=== PATIENT | male | born 1960 | race Caucasian/White ===

== ENCOUNTER 2022-12-18 19:05 | Emergency (ER) | payer MEDICAID, OTHER ==
[~2022-12-18] VITALS: Ht 188 cm; Wt 82.0 kg
[2022-12-18] MEDS ORDERED: IBUPROFEN 600MG TABLET PO STA (22:57)
[2022-12-19] MEDS ORDERED: CIPR5DRO EACHEYE (05:46)
[2022-12-19 08:03] VITALS: BP 129/52
== END 2022-12-19 10:00 | disposition home or self-care (01) ==
LOC: ER 19:22
DX: M54.2 Cervicalgia (principal); M25.512 Pain in left shoulder; M25.511 Pain in right shoulder; G89.11 Acute pain due to trauma; Z91.81 History of falling; H10.33 Unspecified acute conjunctivitis, bilateral; J34.1 Cyst and mucocele of nose and nasal sinus; M47.812 Spondylosis without myelopathy or radiculopathy, cervical region; M84.419A Pathological fracture, unspecified shoulder, initial encounter for fracture; Z98.1 Arthrodesis status
CPT/HCPCS: 70450; 72125; 72141; 99284; Z7610

== ENCOUNTER → 2023-04-16 | Emergency (ER) | payer MEDICAID, OTHER ==
[~2023-04-16] VITALS: Ht 188 cm; Wt 81.0 kg
[~2023-04-16] MED LIST: CIPR5DRO EACHEYE
[2023-04-16 18:37] VITALS: BP 115/48; PULSE 59; RESP 18; TEMP 98; O2SAT 100
== END | disposition left against medical advice (07) ==
LOC: ER 21:00
DX: H10.022 Other mucopurulent conjunctivitis, left eye (principal); Z53.21 Procedure and treatment not carried out due to patient leaving prior to being seen by health care provider
CPT/HCPCS: 99281

== ENCOUNTER 2023-10-03 03:17 | Inpatient (IN) | payer OTHER ==
[~2023-10-03] VITALS: Ht 193 cm; Wt 93.1 kg
[2023-10-03 08:49] LABS: BASOPHILS % 0.3 % (0.0-2.0); EOSINOPHILS % 0.5 % (0.0-5.0); HEMATOCRIT. 24.9 % (42.0-52.0); HEMOGLOBIN. 8.5 g/dL (14.0-18.0); LYMPHOCYTES % 21.7 % (20.0-50.0); MEAN CORPUSCULAR HEMOGLOBIN 32.9 pg (28.0-32.0); MEAN CORPUSCULAR HGB CONC 34.1 g/dL (31.0-37.0); MEAN CORPUSCULAR VOLUME 96.6 fL (80.0-94.0); MEAN PLATELET VOLUME 6.7 fl (7.4-10.4); MONOCYTES % 8.7 % (2.0-8.0); NEUTROPHILS % 68.8 % (40.0-76.0); PLATELET 331 x1000/uL (130-400); RED BLOOD CELL COUNT 2.58 mill/uL (4.7-6.1); RED CELL DISTRIBUTION WIDTH 17.2 % (11.6-14.6)
[2023-10-03] MEDS ORDERED: KETOROLAC 30MG/ML VIAL IV ONE (09:00)
[2023-10-03] MEDS ORDERED: AZITHROMYCIN 500MG/250ML 250 ML IV ONE (09:15)
[2023-10-03] MEDS ORDERED: CEFTRIAXONE 1GM PREMIX 50 ML IV ONE (09:15)
[2023-10-03 09:25] LABS: ALANINE AMINOTRANSFERASE 16 IU/L (10-49); ALBUMIN 3.5 g/dL (3.2-4.8); ASPARTATE AMINOTRANSFERASE 22 IU/L (<34); BILIRUBIN TOTAL 0.6 mg/dL (0.1-1.0); CARBON DIOXIDE 29 mEq/L (21-32); CHLORIDE 99 mEq/L (98-107); CREATININE 0.8 mg/dL (0.6-1.3); GLUCOSE 91 mg/dL (70-105); POTASSIUM 4.1 mEq/L (3.5-5.1); PROTEIN TOTAL 5.6 g/dL (6.0-8.3); SODIUM 134 mEq/L (136-145); TROPONIN I HIGH SENSITIVITY 7 ng/L (3.0-53); UREA NITROGEN BLOOD 15 mg/dL (9-23)
[2023-10-03] MEDS ORDERED: IPRATROPIUM/ALBUTEROL 0.5-3(2.5)MG/3ML NEB HHN PRN (13:45)
[2023-10-03] MEDS ORDERED: DIPHENHYDRAMINE 50MG/ML VIAL IV PRN (13:45)
[2023-10-03] MEDS ORDERED: ONDANSETRON HCL 4MG/2ML INJ IV PRN (13:45)
[2023-10-03] MEDS ORDERED: NALOXONE HCL 0.4MG/ML VIAL IV PRN (14:00)
[2023-10-03 15:05] VITALS: BP 115/59; PULSE 80; RESP 18; TEMP 97.7
[2023-10-03] MEDS ORDERED: CEFTRIAXONE 1GM PREMIX 50 ML IV SCH (16:15)
[2023-10-03 20:00] VITALS: BP 117/54; PULSE 82; RESP 18; TEMP 98
[2023-10-03] MEDS ORDERED: GADOTERATE MEGLUMINE 5 MMOL/10 ML VIAL IV ONE (20:29)
[2023-10-03 22:26] LABS: FOLIC ACID (FOLATE) SERUM 13.33 ng/mL (>5.38); VITAMIN B12 SERUM 1568 pg/mL (211-911)
[2023-10-03 22:59] LABS: HEPATITIS B SURFACE ANTIGEN NEGATIVE (Negative); HEPATITIS C AB NON REACTIVE (Neg) (Negative)
[2023-10-04] VITALS: BP 122/57; PULSE 78; RESP 18; TEMP 97.8
[2023-10-04 04:00] VITALS: BP 111/55; PULSE 80; RESP 17; TEMP 99.1
[2023-10-04 08:00] VITALS: BP 109/57; PULSE 81; RESP 18; TEMP 97.8
[2023-10-04 08:10] LABS: BASOPHILS % 0.4 % (0.0-2.0); EOSINOPHILS % 1.8 % (0.0-5.0); HEMATOCRIT. 22.3 % (42.0-52.0); HEMOGLOBIN. 7.7 g/dL (14.0-18.0); LYMPHOCYTES % 20.4 % (20.0-50.0); MEAN CORPUSCULAR HGB CONC 34.4 g/dL (31.0-37.0); MEAN PLATELET VOLUME 7.1 fl (7.4-10.4); MONOCYTES % 8.7 % (2.0-8.0); NEUTROPHILS % 68.7 % (40.0-76.0); PLATELET 329 x1000/uL (130-400); RED BLOOD CELL COUNT 2.32 mill/uL (4.7-6.1); RED CELL DISTRIBUTION WIDTH 17.2 % (11.6-14.6); WHITE BLOOD COUNT 5.8 x1000/uL (4.5-11.0)
[2023-10-04 08:32] LABS: ALANINE AMINOTRANSFERASE 12 IU/L (10-49); ALBUMIN 2.9 g/dL (3.2-4.8); ASPARTATE AMINOTRANSFERASE 20 IU/L (<34); BILIRUBIN TOTAL 0.4 mg/dL (0.1-1.0); CALCIUM 8.3 mg/dL (8.7-10.4); CARBON DIOXIDE 27 mEq/L (21-32); CHLORIDE 100 mEq/L (98-107); CREATININE 0.8 mg/dL (0.6-1.3); GLUCOSE 86 mg/dL (70-105); POTASSIUM 3.9 mEq/L (3.5-5.1); PROTEIN TOTAL 5.5 g/dL (6.0-8.3); SODIUM 135 mEq/L (136-145); UREA NITROGEN BLOOD 18 mg/dL (9-23)
[2023-10-04] MEDS ORDERED: AZITHROMYCIN 500 MG in DEXT 5% WATER 250 ML IV SCH ×2 (09:00→11:00)
[2023-10-04] MEDS: CEFTRIAXONE 1,000 MG in DEXTROSE 5% WATER 50 ML IV SCH ×2 (09:22→09:27)
[2023-10-04] MEDS ORDERED: DIATR MEGLU/DIATRIZOATE SOLN 30ML PO SCH (11:30)
[2023-10-04 16:00] VITALS: BP 110/64; PULSE 86; RESP 17; TEMP 97.7
[2023-10-04 16:27] LABS: INR 1.2; PROTHROMBIN TIME 12.3 sec (9.6-11.0)
[2023-10-04 20:00] VITALS: BP 112/75; PULSE 86; RESP 18; TEMP 97.5
[2023-10-04] MEDS: POLYMYXIN B SULFATE/TMP 10ML BOTTLE BOTHEYE SCH ×2 (20:24→23:35)
[2023-10-05] VITALS: BP 120/81; PULSE 85; RESP 18; TEMP 98
[2023-10-05] MEDS: POLYMYXIN B SULFATE/TMP 10ML BOTTLE BOTHEYE SCH ×3 (02:48→09:24)
[2023-10-05] MEDS: MORPHINE SULFATE 2 MG/ML CPJ (NOT FOR IM USE) IV PRN (03:03)
[2023-10-05 04:00] VITALS: BP 125/80; PULSE 91; RESP 18; TEMP 98.7
[2023-10-05] MEDS ORDERED: DIATR MEGLU/DIATRIZOATE SOLN 30ML PO NR (05:00)
[2023-10-05 08:00] VITALS: BP 111/58; PULSE 80; RESP 18; TEMP 99.5
[2023-10-05 08:39] LABS: BASOPHILS % 0.4 % (0.0-2.0); HEMATOCRIT. 23.2 % (42.0-52.0); HEMOGLOBIN. 7.8 g/dL (14.0-18.0); MEAN CORPUSCULAR HEMOGLOBIN 32.5 pg (28.0-32.0); MEAN CORPUSCULAR HGB CONC 33.4 g/dL (31.0-37.0); MEAN CORPUSCULAR VOLUME 97.4 fL (80.0-94.0); MEAN PLATELET VOLUME 6.9 fl (7.4-10.4); MONOCYTES % 10.4 % (2.0-8.0); NEUTROPHILS % 59.2 % (40.0-76.0); PLATELET 334 x1000/uL (130-400); RED BLOOD CELL COUNT 2.39 mill/uL (4.7-6.1); RED CELL DISTRIBUTION WIDTH 16.6 % (11.6-14.6); WHITE BLOOD COUNT 5.5 x1000/uL (4.5-11.0)
[2023-10-05 08:54] LABS: CALCIUM 8.5 mg/dL (8.7-10.4); CARBON DIOXIDE 28 mEq/L (21-32); CHLORIDE 100 mEq/L (98-107); CREATININE 0.7 mg/dL (0.6-1.3); GLUCOSE 83 mg/dL (70-105); POTASSIUM 3.7 mEq/L (3.5-5.1); SODIUM 133 mEq/L (136-145); UREA NITROGEN BLOOD 14 mg/dL (9-23)
[2023-10-05] MEDS: BICALUTAMIDE 50 MG TABLET PO SCH (09:24)
[2023-10-05] MEDS: DEXAMETHASONE 4MG TABLET PO SCH ×2 (09:25→22:03)
[2023-10-05] MEDS ORDERED: IOHEXOL-300 100 ML BOTTLE ONE (11:58)
[2023-10-05 12:00] VITALS: BP 143/68; PULSE 83; RESP 18; TEMP 97.8
[2023-10-05 16:00] VITALS: BP 145/72; PULSE 91; RESP 18; TEMP 97.2
[2023-10-05 20:00] VITALS: BP 138/72; PULSE 84; RESP 16; TEMP 97.6
[2023-10-06] VITALS: BP 142/68; PULSE 82; RESP 18; TEMP 98
[2023-10-06 04:00] VITALS: BP 134/59; PULSE 84; RESP 16; TEMP 98.2
[2023-10-06 06:45] LABS: BASOPHILS % 0.4 % (0.0-2.0); EOSINOPHILS % 0.5 % (0.0-5.0); HEMATOCRIT. 24.4 % (42.0-52.0); HEMOGLOBIN. 8.3 g/dL (14.0-18.0); LYMPHOCYTES % 26.7 % (20.0-50.0); MEAN CORPUSCULAR HEMOGLOBIN 32.4 pg (28.0-32.0); MEAN CORPUSCULAR HGB CONC 33.9 g/dL (31.0-37.0); MEAN CORPUSCULAR VOLUME 95.7 fL (80.0-94.0); MONOCYTES % 9.1 % (2.0-8.0); NEUTROPHILS % 63.3 % (40.0-76.0); PLATELET 386 x1000/uL (130-400); RED BLOOD CELL COUNT 2.55 mill/uL (4.7-6.1); RED CELL DISTRIBUTION WIDTH 16.6 % (11.6-14.6); WHITE BLOOD COUNT 9.1 x1000/uL (4.5-11.0)
[2023-10-06 07:11] LABS: CALCIUM 8.7 mg/dL (8.7-10.4); CARBON DIOXIDE 29 mEq/L (21-32); CHLORIDE 100 mEq/L (98-107); CREATININE 0.8 mg/dL (0.6-1.3); GLUCOSE 93 mg/dL (70-105); POTASSIUM 4.2 mEq/L (3.5-5.1); SODIUM 134 mEq/L (136-145); UREA NITROGEN BLOOD 18 mg/dL (9-23)
[2023-10-06 08:36] VITALS: BP 123/63; PULSE 75; RESP 18; TEMP 99.8
[2023-10-06] MEDS: BICALUTAMIDE 50 MG TABLET PO SCH (08:57)
[2023-10-06] MEDS: DEXAMETHASONE 4MG TABLET PO SCH ×2 (08:57→21:30)
[2023-10-06 12:51] VITALS: BP 128/53; PULSE 74; RESP 17; TEMP 99.2
[2023-10-06 16:09] VITALS: BP 126/63; PULSE 84; RESP 20; TEMP 99.4
[2023-10-06 20:00] VITALS: BP 120/61; PULSE 87; RESP 16; TEMP 98.6
[2023-10-06] MEDS: POLYMYXIN B SULFATE/TMP 10ML BOTTLE BOTHEYE SCH (21:36)
[2023-10-06 22:22] LABS: INR 1.1; PROTHROMBIN TIME 11.9 sec (9.6-11.0)
[2023-10-06 22:36] LABS: LACTATE DEHYDROGENASE 225 IU/L (120-246)
[2023-10-07] VITALS: BP 109/58; PULSE 77; RESP 18; TEMP 97.7
[2023-10-07 04:00] VITALS: BP 116/63; PULSE 83; RESP 17; TEMP 97.8
[2023-10-07 06:41] LABS: HEMATOCRIT. 23.1 % (42.0-52.0); HEMOGLOBIN. 8.1 g/dL (14.0-18.0); MEAN CORPUSCULAR HEMOGLOBIN 33.5 pg (28.0-32.0); MEAN CORPUSCULAR VOLUME 95.6 fL (80.0-94.0); MEAN PLATELET VOLUME 6.9 fl (7.4-10.4); PLATELET 377 x1000/uL (130-400); RED BLOOD CELL COUNT 2.42 mill/uL (4.7-6.1); WHITE BLOOD COUNT 6.7 x1000/uL (4.5-11.0)
[2023-10-07 06:50] LABS: CALCIUM 8.5 mg/dL (8.7-10.4); CARBON DIOXIDE 27 mEq/L (21-32); CHLORIDE 102 mEq/L (98-107); CREATININE 0.8 mg/dL (0.6-1.3); GLUCOSE 113 mg/dL (70-105); SODIUM 136 mEq/L (136-145); UREA NITROGEN BLOOD 18 mg/dL (9-23)
[2023-10-07 07:07] LABS: DIFFERENTIAL COMMENT 1
[2023-10-07] MEDS ORDERED: SODIUM BICARBONATE 4% (2.4MEQ) 5ML VIAL IV ONE (09:08)
[2023-10-07] MEDS: ACETAMINOPHEN 325MG TABLET PO PRN (11:44)
[2023-10-07] MEDS: BICALUTAMIDE 50 MG TABLET PO SCH (11:45)
[2023-10-07] MEDS: DEXAMETHASONE 4MG TABLET PO SCH ×2 (11:45→21:12)
[2023-10-07] MEDS ORDERED: DEXA4TAB MT (11:50)
[2023-10-07] MEDS ORDERED: BICA50TA48 PO (11:50)
[2023-10-07] MEDS ORDERED: FAMO20TA8 MT (11:50)
[2023-10-07 12:00] VITALS: BP 130/56; PULSE 71; RESP 19; TEMP 97.3
[2023-10-07 12:20] LABS: BODY FLUID MONOCYTES 4 %
[2023-10-07 12:21] LABS: BODY FLUID RBC 500 /cu mm (0-2000); BODY FLUID WBC 1225 /cu mm (0-200)
[2023-10-07 14:59] LABS: PROTEIN BODY FLUID 2.1 gm/dL
[2023-10-07 16:00] VITALS: BP 118/64; PULSE 83; RESP 17; TEMP 97.5
[2023-10-07 17:43] LABS: PLATELET ESTIMATE NORMAL
[2023-10-07 20:00] VITALS: BP 125/60; PULSE 83; RESP 17; TEMP 97.3
[2023-10-07] MEDS: FAMOTIDINE 20MG TABLET PO SCH (21:12)
[2023-10-08] VITALS: BP 127/71; PULSE 73; RESP 16; TEMP 97
[2023-10-08 04:00] VITALS: BP 124/67; PULSE 69; RESP 16; TEMP 97.8
[2023-10-08] MEDS ORDERED: NA PHOS,M-B/NA PHOS,DI-BA ENEMA 118ML PR NR (07:00)
[2023-10-08 08:00] VITALS: BP 113/61; PULSE 83; RESP 18; TEMP 97.4
[2023-10-08] MEDS: MORPHINE SULFATE 2 MG/ML CPJ (NOT FOR IM USE) IV PRN ×2 (08:52→23:43)
[2023-10-08] MEDS: DEXAMETHASONE 4MG TABLET PO SCH ×2 (10:19→20:44)
[2023-10-08] MEDS: BICALUTAMIDE 50 MG TABLET PO SCH (10:19)
[2023-10-08] MEDS: FAMOTIDINE 20MG TABLET PO SCH ×2 (10:20→20:44)
[2023-10-08 11:57] VITALS: BP 112/56; PULSE 65; RESP 18; TEMP 97.5
[2023-10-08] MEDS ORDERED: PROPOFOL 200MG/20ML VIAL IV ONE (13:53)
[2023-10-08] MEDS ORDERED: MIDAZOLAM HCL 2 MG/2 ML VIAL ONE (13:53)
[2023-10-08] MEDS ORDERED: FENTANYL CITRATE/PF 50MCG/ML 2ML VIAL ONE (13:53)
[2023-10-08] MEDS ORDERED: IOHEXOL-300 100 ML BOTTLE ONE (14:06)
[2023-10-08] MEDS ORDERED: ONDANSETRON HCL 4MG/2ML INJ ONE (14:22)
[2023-10-08] MEDS ORDERED: GENTAMICIN SULF 40MG/ML 2ML VIAL ONE (14:22)
[2023-10-08] MEDS ORDERED: DEXAMETHASONE 4MG/ML 1ML VIAL ONE (14:22)
[2023-10-08] MEDS ORDERED: EPHEDRINE SULFATE 50MG/ML VIAL ONE (14:22)
[2023-10-08 16:00] VITALS: BP 105/58; PULSE 67; RESP 18; TEMP 97
[2023-10-08] MEDS: HYDROCODONE/ACETAMINOPHEN 5/325MG TABLET PO PRN (17:54)
[2023-10-08] MEDS ORDERED: NALOXONE HCL 0.4MG/ML VIAL IV PRN (18:00)
[2023-10-08 20:00] VITALS: BP 97/53; PULSE 79; RESP 17; TEMP 98
[2023-10-09] VITALS (24 sets, daily range): BP systolic 88–134; BP diastolic 50–73; PULSE 67–78; RESP 10–70; TEMP 97.6–98.1
[2023-10-09 07:57] LABS: HEMATOCRIT. 21.7 % (42.0-52.0); HEMOGLOBIN. 7.5 g/dL (14.0-18.0); MEAN CORPUSCULAR HEMOGLOBIN 33.3 pg (28.0-32.0); MEAN CORPUSCULAR HGB CONC 34.7 g/dL (31.0-37.0); MEAN CORPUSCULAR VOLUME 96.1 fL (80.0-94.0); MEAN PLATELET VOLUME 6.9 fl (7.4-10.4); PLATELET 360 x1000/uL (130-400); RED BLOOD CELL COUNT 2.26 mill/uL (4.7-6.1); RED CELL DISTRIBUTION WIDTH 17.4 % (11.6-14.6)
[2023-10-09 08:05] LABS: DIFFERENTIAL COMMENT 1
[2023-10-09] MEDS: FAMOTIDINE 20MG TABLET PO SCH ×2 (08:45→21:24)
[2023-10-09] MEDS: DEXAMETHASONE 4MG TABLET PO SCH ×2 (08:45→21:23)
[2023-10-09] MEDS: BICALUTAMIDE 50 MG TABLET PO SCH (08:49)
[2023-10-09 08:51] LABS: CALCIUM 8.1 mg/dL (8.7-10.4); CARBON DIOXIDE 29 mEq/L (21-32); CHLORIDE 101 mEq/L (98-107); CREATININE 0.8 mg/dL (0.6-1.3); GLUCOSE 114 mg/dL (70-105); POTASSIUM 4.1 mEq/L (3.5-5.1); SODIUM 134 mEq/L (136-145); UREA NITROGEN BLOOD 20 mg/dL (9-23)
[2023-10-09] MEDS ORDERED: LIDOCAINE HCL 1% 10 MG/ML 10ML VIAL ONE (12:09)
[2023-10-09] MEDS ORDERED: IOHEXOL-300 100 ML BOTTLE ONE (12:10)
[2023-10-09] MEDS: LEVOFLOXACIN 500MG TABLET PO SCH (12:34)
[2023-10-09] MEDS ORDERED: FENTANYL CITRATE/PF 50MCG/ML 2ML VIAL ONE (13:09)
[2023-10-09] MEDS ORDERED: FENTANYL CITRATE/PF 50MCG/ML 2ML VIAL IV NR (13:15)
[2023-10-09] MEDS ORDERED: MIDAZOLAM HCL 2 MG/2 ML VIAL ONE (13:39)
[2023-10-09] MEDS ORDERED: MIDAZOLAM HCL 5 MG/5 ML VIAL IV ONE (13:40)
[2023-10-09] MEDS: MORPHINE SULFATE 2 MG/ML CPJ (NOT FOR IM USE) IV PRN (16:16)
[2023-10-09 17:21] LABS: PLATELET ESTIMATE NORMAL
[2023-10-09 17:25] LABS: ANISOCYTOSIS 1+
[2023-10-10] VITALS: BP 122/61; PULSE 73; RESP 20; TEMP 99.1
[2023-10-10 04:00] VITALS: BP 115/65; PULSE 5; RESP 20; TEMP 99.7
[2023-10-10 06:30] LABS: HEMATOCRIT. 22.6 % (42.0-52.0); HEMOGLOBIN. 7.6 g/dL (14.0-18.0); MEAN CORPUSCULAR HEMOGLOBIN 32.9 pg (28.0-32.0); MEAN CORPUSCULAR HGB CONC 33.7 g/dL (31.0-37.0); MEAN CORPUSCULAR VOLUME 97.6 fL (80.0-94.0); MEAN PLATELET VOLUME 7.1 fl (7.4-10.4); PLATELET 382 x1000/uL (130-400); RED BLOOD CELL COUNT 2.32 mill/uL (4.7-6.1); WHITE BLOOD COUNT 9.3 x1000/uL (4.5-11.0)
[2023-10-10 06:36] LABS: DIFFERENTIAL COMMENT 1
[2023-10-10 06:38] LABS: CALCIUM 8.4 mg/dL (8.7-10.4); CARBON DIOXIDE 27 mEq/L (21-32); CHLORIDE 101 mEq/L (98-107); CREATININE 0.9 mg/dL (0.6-1.3); GLUCOSE 105 mg/dL (70-105); POTASSIUM 4.2 mEq/L (3.5-5.1); SODIUM 135 mEq/L (136-145); UREA NITROGEN BLOOD 21 mg/dL (9-23)
[2023-10-10 08:00] VITALS: BP 113/78; PULSE 67; RESP 18; TEMP 97.9
[2023-10-10] MEDS: FAMOTIDINE 20MG TABLET PO SCH ×2 (09:59→21:54)
[2023-10-10] MEDS: BICALUTAMIDE 50 MG TABLET PO SCH (09:59)
[2023-10-10] MEDS: LEVOFLOXACIN 500MG TABLET PO SCH (09:59)
[2023-10-10] MEDS: DEXAMETHASONE 4MG TABLET PO SCH ×2 (10:01→21:54)
[2023-10-10 12:00] VITALS: BP 110/58; PULSE 69; RESP 18; TEMP 97.5
[2023-10-10 16:00] VITALS: BP 119/67; PULSE 80; RESP 18; TEMP 98.1
[2023-10-10 20:00] VITALS: BP 116/65; PULSE 75; RESP 18; TEMP 98.5
[2023-10-11] VITALS: BP 118/62; PULSE 71; RESP 18; TEMP 98.2
[2023-10-11 00:39] LABS: PLATELET ESTIMATE NORMAL
[2023-10-11 04:00] VITALS: BP 116/64; PULSE 77; RESP 18; TEMP 98.2
[2023-10-11 08:00] VITALS: BP 129/66; PULSE 71; RESP 18; TEMP 98.1
[2023-10-11] MEDS: FAMOTIDINE 20MG TABLET PO SCH ×2 (08:43→21:49)
[2023-10-11] MEDS: DEXAMETHASONE 4MG TABLET PO SCH ×2 (08:43→21:49)
[2023-10-11] MEDS: BICALUTAMIDE 50 MG TABLET PO SCH (08:43)
[2023-10-11 12:00] VITALS: BP 106/53; PULSE 69; RESP 20; TEMP 98.1
[2023-10-11] MEDS: ACETAMINOPHEN 325MG TABLET PO PRN (13:10)
[2023-10-11 16:00] VITALS: BP 96/61; PULSE 50; RESP 18; TEMP 98.6
[2023-10-11 20:00] VITALS: BP 120/64; PULSE 79; RESP 18; TEMP 98.1
[2023-10-12] VITALS: BP 128/67; PULSE 86; RESP 20; TEMP 98.4
[2023-10-12] MEDS: HYDROCODONE/ACETAMINOPHEN 5/325MG TABLET PO PRN (01:09)
[2023-10-12 04:00] VITALS: BP 106/60; PULSE 77; RESP 18; TEMP 98.2
[2023-10-12 05:36] LABS: CALCIUM 8.2 mg/dL (8.7-10.4); CARBON DIOXIDE 28 mEq/L (21-32); CHLORIDE 100 mEq/L (98-107); CREATININE 0.7 mg/dL (0.6-1.3); GLUCOSE 109 mg/dL (70-105); POTASSIUM 4.1 mEq/L (3.5-5.1); SODIUM 133 mEq/L (136-145); UREA NITROGEN BLOOD 22 mg/dL (9-23)
[2023-10-12 06:35] LABS: BASOPHILS % 0.1 % (0.0-2.0); EOSINOPHILS % 0.1 % (0.0-5.0); HEMATOCRIT. 24.2 % (42.0-52.0); HEMOGLOBIN. 8.4 g/dL (14.0-18.0); LYMPHOCYTES % 12.1 % (20.0-50.0); MEAN CORPUSCULAR HEMOGLOBIN 33.1 pg (28.0-32.0); MEAN CORPUSCULAR HGB CONC 34.5 g/dL (31.0-37.0); MEAN CORPUSCULAR VOLUME 95.8 fL (80.0-94.0); MEAN PLATELET VOLUME 7.1 fl (7.4-10.4); MONOCYTES % 4.6 % (2.0-8.0); NEUTROPHILS % 83.1 % (40.0-76.0); PLATELET 387 x1000/uL (130-400); RED BLOOD CELL COUNT 2.53 mill/uL (4.7-6.1); RED CELL DISTRIBUTION WIDTH 17.4 % (11.6-14.6); WHITE BLOOD COUNT 14.4 x1000/uL (4.5-11.0)
[2023-10-12 08:00] VITALS: BP 107/58; PULSE 74; RESP 18; TEMP 98.3
[2023-10-12] MEDS: BICALUTAMIDE 50 MG TABLET PO SCH (08:37)
[2023-10-12] MEDS: DEXAMETHASONE 4MG TABLET PO SCH ×2 (08:37→21:12)
[2023-10-12] MEDS: FAMOTIDINE 20MG TABLET PO SCH ×2 (08:37→21:12)
[2023-10-12 12:00] VITALS: BP 93/50; PULSE 74; RESP 17; TEMP 98.2
[2023-10-12 16:00] VITALS: BP 107/58; PULSE 74; RESP 18; TEMP 98.3
[2023-10-12 20:00] VITALS: BP 106/53; PULSE 78; RESP 18; TEMP 99.8
[2023-10-13] VITALS (7 sets, daily range): BP systolic 101–115; BP diastolic 58–65; PULSE 69–75; RESP 18–20; TEMP 97.6–99.4
[2023-10-13 06:49] LABS: BASOPHILS % 0.1 % (0.0-2.0); DIFFERENTIAL COMMENT 0; EOSINOPHILS % 0.3 % (0.0-5.0); HEMATOCRIT. 24.3 % (42.0-52.0); HEMOGLOBIN. 8.3 g/dL (14.0-18.0); LYMPHOCYTES % 13.1 % (20.0-50.0); MEAN CORPUSCULAR HEMOGLOBIN 32.6 pg (28.0-32.0); MEAN CORPUSCULAR VOLUME 95.9 fL (80.0-94.0); MONOCYTES % 5.7 % (2.0-8.0); NEUTROPHILS % 80.8 % (40.0-76.0); PLATELET 364 x1000/uL (130-400); RED BLOOD CELL COUNT 2.53 mill/uL (4.7-6.1); RED CELL DISTRIBUTION WIDTH 17.3 % (11.6-14.6); WHITE BLOOD COUNT 14.5 x1000/uL (4.5-11.0)
[2023-10-13 07:45] LABS: CALCIUM 8.4 mg/dL (8.7-10.4); CARBON DIOXIDE 28 mEq/L (21-32); CHLORIDE 100 mEq/L (98-107); CREATININE 0.7 mg/dL (0.6-1.3); GLUCOSE 107 mg/dL (70-105); POTASSIUM 3.9 mEq/L (3.5-5.1); SODIUM 127 mEq/L (136-145); UREA NITROGEN BLOOD 27 mg/dL (9-23)
[2023-10-13] MEDS: FAMOTIDINE 20MG TABLET PO SCH ×2 (09:14→21:54)
[2023-10-13] MEDS: DEXAMETHASONE 4MG TABLET PO SCH ×2 (09:14→21:54)
[2023-10-13] MEDS: BICALUTAMIDE 50 MG TABLET PO SCH (09:14)
[2023-10-14] VITALS: BP 104/62; PULSE 60; RESP 20; TEMP 98.1
[2023-10-14 04:00] VITALS: BP 97/55; PULSE 66; RESP 20; TEMP 98.2
[2023-10-14] MEDS: BICALUTAMIDE 50 MG TABLET PO SCH (09:00)
[2023-10-14] MEDS: DEXAMETHASONE 4MG TABLET PO SCH ×2 (09:21→21:41)
[2023-10-14] MEDS: FAMOTIDINE 20MG TABLET PO SCH ×2 (09:21→21:41)
[2023-10-14 16:00] VITALS: BP 124/60; PULSE 73; RESP 19; TEMP 98.2
[2023-10-14 20:00] VITALS: BP 107/59; PULSE 79; RESP 19; TEMP 97.8
[2023-10-15] VITALS: BP 97/68; PULSE 68; RESP 19; TEMP 97.7
[2023-10-15 04:00] VITALS: BP 121/68; PULSE 74; RESP 18; TEMP 97.6
[2023-10-15 08:00] VITALS: BP 107/62; PULSE 77; RESP 18; TEMP 99.6
[2023-10-15] MEDS: BICALUTAMIDE 50 MG TABLET PO SCH (10:46)
[2023-10-15] MEDS: DEXAMETHASONE 4MG TABLET PO SCH ×2 (10:47→20:55)
[2023-10-15] MEDS: FAMOTIDINE 20MG TABLET PO SCH ×2 (10:47→20:55)
[2023-10-15 12:00] VITALS: BP 102/56; PULSE 79; RESP 18; TEMP 98.8
[2023-10-15 16:00] VITALS: BP 102/55; PULSE 80; RESP 18; TEMP 97.9
[2023-10-15 20:00] VITALS: BP 102/58; PULSE 74; RESP 18; TEMP 96.3
[2023-10-16 02:00] VITALS: BP 123/57; PULSE 73; RESP 18; TEMP 97.9
[2023-10-16 04:00] VITALS: BP 104/57; PULSE 71; RESP 18; TEMP 97.7
[2023-10-16] MEDS: ACETAMINOPHEN 325MG TABLET PO PRN ×2 (06:32→17:44)
[2023-10-16 06:37] LABS: HEMATOCRIT. 23.1 % (42.0-52.0); HEMOGLOBIN. 7.8 g/dL (14.0-18.0); MEAN CORPUSCULAR HEMOGLOBIN 32.8 pg (28.0-32.0); MEAN CORPUSCULAR HGB CONC 33.8 g/dL (31.0-37.0); MEAN PLATELET VOLUME 6.8 fl (7.4-10.4); PLATELET 358 x1000/uL (130-400); RED BLOOD CELL COUNT 2.38 mill/uL (4.7-6.1); RED CELL DISTRIBUTION WIDTH 17.4 % (11.6-14.6); WHITE BLOOD COUNT 10.7 x1000/uL (4.5-11.0)
[2023-10-16 06:39] LABS: DIFFERENTIAL COMMENT 1
[2023-10-16 06:50] LABS: CALCIUM 8.2 mg/dL (8.7-10.4); CARBON DIOXIDE 27 mEq/L (21-32); CHLORIDE 99 mEq/L (98-107); CREATININE 0.6 mg/dL (0.6-1.3); GLUCOSE 94 mg/dL (70-105); SODIUM 132 mEq/L (136-145); UREA NITROGEN BLOOD 25 mg/dL (9-23)
[2023-10-16 08:00] VITALS: BP 101/55; PULSE 66; RESP 19; TEMP 98.1
[2023-10-16] MEDS: BICALUTAMIDE 50 MG TABLET PO SCH (10:44)
[2023-10-16] MEDS: FAMOTIDINE 20MG TABLET PO SCH ×2 (10:45→21:43)
[2023-10-16] MEDS: DEXAMETHASONE 4MG TABLET PO SCH ×2 (10:45→21:43)
[2023-10-16 12:00] VITALS: BP 94/50; PULSE 72; RESP 19; TEMP 98.1
[2023-10-16 15:56] LABS: ANISOCYTOSIS 1+; PLATELET ESTIMATE NORMAL
[2023-10-16 16:00] VITALS: BP 104/54; PULSE 73; RESP 19; TEMP 98.2
[2023-10-16 20:00] VITALS: BP 103/55; PULSE 71; RESP 18; TEMP 96.4
[2023-10-17 04:00] VITALS: BP 108/55; PULSE 69; RESP 18; TEMP 97.5
[2023-10-17 08:00] VITALS: BP 101/54; PULSE 60; RESP 18; TEMP 97.8
[2023-10-17] MEDS: ACETAMINOPHEN 325MG TABLET PO PRN (08:39)
[2023-10-17] MEDS: BICALUTAMIDE 50 MG TABLET PO SCH (09:50)
[2023-10-17] MEDS: FAMOTIDINE 20MG TABLET PO SCH ×2 (09:50→20:36)
[2023-10-17] MEDS: DEXAMETHASONE 4MG TABLET PO SCH ×2 (09:50→20:36)
[2023-10-17 12:00] VITALS: BP 103/62; PULSE 77; RESP 18; TEMP 97.7
[2023-10-17 16:00] VITALS: BP 100/55; PULSE 73; RESP 18; TEMP 97.7
[2023-10-17 20:00] VITALS: BP 106/62; PULSE 75; RESP 20; TEMP 97.7
[2023-10-18] VITALS: BP 102/60; PULSE 70; RESP 20; TEMP 96.8
[2023-10-18 04:00] VITALS: BP 92/52; PULSE 68; RESP 20; TEMP 97.7
[2023-10-18 08:00] VITALS: BP 106/59; PULSE 61; RESP 18; TEMP 97.7
[2023-10-18] MEDS: DEXAMETHASONE 4MG TABLET PO SCH ×2 (09:13→21:00)
[2023-10-18] MEDS: FAMOTIDINE 20MG TABLET PO SCH ×2 (09:13→21:00)
[2023-10-18] MEDS: BICALUTAMIDE 50 MG TABLET PO SCH (09:44)
[2023-10-18 12:15] VITALS: BP 97/51; PULSE 76; RESP 20; TEMP 97.8
[2023-10-18 16:00] VITALS: BP 112/58; PULSE 79; RESP 20; TEMP 97.8
[2023-10-18 20:00] VITALS: BP_SYST 109; BP_SYST 110; BP_DIAS 51; BP_DIAS 62; PULSE 75; RESP 20; TEMP 97.5; TEMP 97.9
[2023-10-19 04:00] VITALS: BP 93/46; PULSE 71; RESP 20; TEMP 98.1
[2023-10-19 05:59] LABS: CALCIUM 8.1 mg/dL (8.7-10.4); CARBON DIOXIDE 28 mEq/L (21-32); CHLORIDE 98 mEq/L (98-107); CREATININE 0.5 mg/dL (0.6-1.3); GLUCOSE 107 mg/dL (70-105); POTASSIUM 4.3 mEq/L (3.5-5.1); SODIUM 131 mEq/L (136-145); UREA NITROGEN BLOOD 24 mg/dL (9-23)
[2023-10-19 06:18] LABS: HEMATOCRIT. 25.5 % (42.0-52.0); HEMOGLOBIN. 8.6 g/dL (14.0-18.0); MEAN CORPUSCULAR HEMOGLOBIN 32.5 pg (28.0-32.0); MEAN CORPUSCULAR HGB CONC 33.8 g/dL (31.0-37.0); MEAN CORPUSCULAR VOLUME 96.1 fL (80.0-94.0); MEAN PLATELET VOLUME 7.3 fl (7.4-10.4); PLATELET 386 x1000/uL (130-400); RED BLOOD CELL COUNT 2.66 mill/uL (4.7-6.1)
[2023-10-19 06:37] LABS: DIFFERENTIAL COMMENT 1
[2023-10-19 08:00] VITALS: BP 113/58; PULSE 67; RESP 19; TEMP 98.2
[2023-10-19] MEDS: BICALUTAMIDE 50 MG TABLET PO SCH (08:51)
[2023-10-19] MEDS: FAMOTIDINE 20MG TABLET PO SCH ×2 (08:51→20:44)
[2023-10-19] MEDS: DEXAMETHASONE 4MG TABLET PO SCH ×2 (08:51→20:44)
[2023-10-19 12:00] VITALS: BP 118/59; PULSE 81; RESP 20; TEMP 98.1
[2023-10-19 13:19] LABS: ANISOCYTOSIS 1+; PLATELET ESTIMATE NORMAL
[2023-10-19 16:00] VITALS: BP 94/47; PULSE 79; RESP 19; TEMP 99.7
[2023-10-19 20:00] VITALS: BP 104/55; PULSE 82; RESP 18; TEMP 97.7
[2023-10-20] VITALS: BP 106/58; PULSE 78; RESP 18; TEMP 98.6
[2023-10-20 08:00] VITALS: BP 115/46; PULSE 62; RESP 19; TEMP 97.9
[2023-10-20] MEDS: FAMOTIDINE 20MG TABLET PO SCH ×2 (08:44→20:49)
[2023-10-20] MEDS: DEXAMETHASONE 4MG TABLET PO SCH ×2 (08:44→20:49)
[2023-10-20] MEDS: BICALUTAMIDE 50 MG TABLET PO SCH (08:48)
[2023-10-20 12:00] VITALS: BP 98/59; PULSE 70; RESP 18; TEMP 97.6
[2023-10-20 16:00] VITALS: BP 103/49; PULSE 68; RESP 17; TEMP 99
[2023-10-20 20:00] VITALS: BP 103/47; PULSE 69; RESP 18; TEMP 96.8
[2023-10-21] VITALS: BP 99/47; PULSE 71; RESP 17; TEMP 96.9
[2023-10-21 04:00] VITALS: BP 94/41; PULSE 68; RESP 18; TEMP 96.5
[2023-10-21 08:00] VITALS: BP 99/54; PULSE 59; RESP 18; TEMP 98.1
[2023-10-21] MEDS: DEXAMETHASONE 4MG TABLET PO SCH ×2 (10:36→20:53)
[2023-10-21] MEDS: FAMOTIDINE 20MG TABLET PO SCH ×2 (10:36→20:53)
[2023-10-21] MEDS: BICALUTAMIDE 50 MG TABLET PO SCH (10:36)
[2023-10-21 12:00] VITALS: BP 100/49; PULSE 63; RESP 19; TEMP 98.2
[2023-10-21 16:00] VITALS: BP 99/46; PULSE 67; RESP 18; TEMP 98.2
[2023-10-21 20:00] VITALS: BP 107/57; PULSE 71; RESP 18; TEMP 97.2
[2023-10-22] VITALS: BP 110/59; PULSE 67; RESP 20; TEMP 97.1
[2023-10-22 04:00] VITALS: BP 97/53; PULSE 61; RESP 20; TEMP 97.7
[2023-10-22 08:00] VITALS: BP 107/56; PULSE 63; RESP 16; TEMP 98.5
[2023-10-22] MEDS: FAMOTIDINE 20MG TABLET PO SCH ×2 (08:46→21:44)
[2023-10-22] MEDS: DEXAMETHASONE 4MG TABLET PO SCH ×2 (08:46→21:44)
[2023-10-22] MEDS: BICALUTAMIDE 50 MG TABLET PO SCH (08:46)
[2023-10-22 12:00] VITALS: BP 96/48; PULSE 62; RESP 16; TEMP 99.3
[2023-10-22 16:00] VITALS: BP 101/44; PULSE 73; RESP 18; TEMP 99.1
[2023-10-22 20:00] VITALS: BP 104/54; PULSE 70; RESP 18; TEMP 96.1
[2023-10-22] MEDS: ACETAMINOPHEN 325MG TABLET PO PRN (21:45)
[2023-10-23] VITALS: BP 102/54; PULSE 75; RESP 18; TEMP 97.1
[2023-10-23 04:00] VITALS: BP 99/50; PULSE 62; RESP 18; TEMP 97.6
[2023-10-23 08:00] VITALS: BP 93/47; PULSE 60; RESP 18; TEMP 98.1
[2023-10-23] MEDS: FAMOTIDINE 20MG TABLET PO SCH ×2 (09:11→21:33)
[2023-10-23] MEDS: DEXAMETHASONE 4MG TABLET PO SCH ×2 (09:11→21:33)
[2023-10-23] MEDS: BICALUTAMIDE 50 MG TABLET PO SCH (09:12)
[2023-10-23 12:00] VITALS: BP 96/54; PULSE 65; RESP 19; TEMP 98.1
[2023-10-23 16:00] VITALS: BP 104/54; PULSE 70; RESP 19; TEMP 97.7
[2023-10-23 20:00] VITALS: BP 104/58; PULSE 74; RESP 18; TEMP 97.7
[2023-10-24] VITALS: BP 105/60; PULSE 69; RESP 18; TEMP 97.4
[2023-10-24 04:00] VITALS: BP 99/59; PULSE 65; RESP 20; TEMP 97.7
[2023-10-24 08:00] VITALS: BP 100/52; PULSE 62; RESP 20; TEMP 97.9
[2023-10-24] MEDS: DEXAMETHASONE 4MG TABLET PO SCH (08:36)
[2023-10-24] MEDS: FAMOTIDINE 20MG TABLET PO SCH (08:36)
[2023-10-24] MEDS: BICALUTAMIDE 50 MG TABLET PO SCH (08:36)
[2023-10-24 12:00] VITALS: BP 93/47; PULSE 61; RESP 18; TEMP 95.5
[2023-10-24 16:00] VITALS: BP 112/80; PULSE 68; RESP 18; TEMP 99.3
[2023-10-24 16:34] VITALS: BP 112/80; PULSE 68; TEMP 99; O2SAT 100
== END 2023-10-24 17:25 | disposition home health service (06) | DRG 694 ==
LOC: ER 03:33 → 7WST 10:51 → EDBEDREQ 10:59 → EDBEDREQTM 10:59 → 6EST 10-14 08:12
PROVIDERS: ADMIT Internal Medicine; ATTEND Internal Medicine
PROC: 0W993ZZ Drainage of Right Pleural Cavity, Percutaneous Approach (ICD-10-PCS; 2023-10-07)
PROC: 0VB08ZX Excision of Prostate, Via Natural or Artificial Opening Endoscopic, Diagnostic (ICD-10-PCS; principal; 2023-10-08)
PROC: 0T768DZ Dilation of Right Ureter with Intraluminal Device, Via Natural or Artificial Opening Endoscopic (ICD-10-PCS; 2023-10-08)
PROC: 0T9130Z Drainage of Left Kidney with Drainage Device, Percutaneous Approach (ICD-10-PCS; 2023-10-08)
PROC: 0T9030Z Drainage of Right Kidney with Drainage Device, Percutaneous Approach (ICD-10-PCS; 2023-10-08)
DX: C79.82 Secondary malignant neoplasm of genital organs (principal); G93.6 Cerebral edema; C79.51 Secondary malignant neoplasm of bone; J18.9 Pneumonia, unspecified organism; E87.20 Acidosis, unspecified; N13.30 Unspecified hydronephrosis; J91.0 Malignant pleural effusion; Q78.2 Osteopetrosis; D32.9 Benign neoplasm of meninges, unspecified; M48.02 Spinal stenosis, cervical region; D53.9 Nutritional anemia, unspecified; H10.89 Other conjunctivitis; R29.6 Repeated falls; K21.9 Gastro-esophageal reflux disease without esophagitis; K86.1 Other chronic pancreatitis; K76.9 Liver disease, unspecified; E66.9 Obesity, unspecified; J98.11 Atelectasis; N32.89 Other specified disorders of bladder; N40.0 Benign prostatic hyperplasia without lower urinary tract symptoms; Z68.25 Body mass index [BMI] 25.0-25.9, adult; Z80.42 Family history of malignant neoplasm of prostate; W18.39XA Other fall on same level, initial encounter; Y93.89 Activity, other specified; Y92.89 Other specified places as the place of occurrence of the external cause; Y99.8 Other external cause status
CPT/HCPCS: 32555; 36415; 50432; 50695; 70486; 70553; 71045; 71260; 72141; 72146; 72148; 72170; 74018; 74177; 76000; 80048; 80053; 82040; 82607; 82746; 82962; 83615; 83880; 84145; 84153; 84295; 84484; 85025; 86705; 87340; 87426; 88108; 88305; 88312; 93005; 93970; 97116; 97162; 97164; 97166; 97168; 97530; 97535; 99285; A9577; C1729; C1760; C1769; C1892; C1893; J0456; J0696; J1100; J1580; J1885; J2250; J2270; J2405; J2704; J3010; J3490; J7030; J7060; J8540; L8514; Q9963; Q9967; G0103